=== PATIENT | female | born 1985 | race Caucasian/White ===

== ENCOUNTER 2019-04-04 04:57 | Emergency (ER) | payer OTHER ==
--- NOTE | 2019-04-04 05:07 | EDM.PDOC ---
ED HPI GENERAL MEDICAL PROBLEM - General Chief Complaint: Back Pain or Injury Stated Complaint: INJURED MIDDLE OF BACK AT WORK Time Seen by Provider: 04/04/19 05:07 - History of Present Illness INITIAL COMMENTS - FREE TEXT/NARRATIVE: 33-year-old female presents emergency room with thoracic back pain. Shortly before arrival the patient strained her back lifting up a trash bag. She has pain on the right side of her spine in the mid thoracic region she has a history of scoliosis and is used to feeling something click in her back. She felt this again when she was lifting a trash bag and figured the discomfort would go away, however it did not. Patient has not developed any numbness or tingling in any of her extremities. No loss of bowel or bladder control. Middle Back Pain Score (Numeric/FACES): 5 - Related Data Allergies Allergy/AdvReac Type Severity Reaction Status Date / Time acetaminophen [From Vicodin] Allergy Hives Verified 04/04/19 05:05 amoxicillin Allergy Anaphylactic Verified 04/04/19 05:05 Shock hydrocodone bitartrate Allergy Hives Verified 04/04/19 05:05 [From Vicodin] oxycodone HCl [From Percocet] Allergy Hives Verified 04/04/19 05:05 Home Meds: Home Meds . [No Known Home Meds] 10/29/18 [History] Social & Family History - Tobacco Use Smoking Status *Q: Current Every Day Smoker Years of Tobacco use: 20 Packs/Tins Daily: 1 - Recreational Drug Use Recreational Drug Use: No ED ROS GENERAL - Review of Systems Review Of Systems: See Below Constitutional: Reports: No Symptoms HEENT: Reports: No Symptoms Respiratory: Reports: No Symptoms Cardiovascular: Reports: No Symptoms GI/Abdominal: Reports: No Symptoms ED EXAM,LOWER BACK PAIN/INJURY - Physical Exam Exam: See Below Exam Limited By: No Limitations General Appearance: Alert, No Apparent Distress Head: Atraumatic, Normocephalic Neck: Normal Inspection Respiratory/Chest: No Respiratory Distress, Lungs Clear, Normal Breath Sounds Cardiovascular: Regular Rate, Rhythm, No Edema, No Murmur Back Exam: Other (Examination of her thoracic back shows no real bony tenderness however she's got marked spasm on the right side paraspinous muscles at about the level of the tip of the shoulder blade and slightly above this) Course - Vital Signs Last Recorded V/S: Last Vital Signs Temp 36.3 C 04/04/19 05:03 Pulse 86 04/04/19 05:03 Resp 16 04/04/19 05:03 BP 122/70 04/04/19 05:03 Pulse Ox 100 04/04/19 05:03 - Orders/Labs/Meds Orders: Active Orders 24 hr Category Date Time Status Thoracic Spine 2V [CR] Stat Exams 04/04/19 05:13 Taken Meds: Medications Discontinued Medications Generic Name Dose Route Start Last Admin Trade Name Lebron PRN Reason Stop Dose Admin Ketorolac Tromethamine 30 mg 04/04/19 06:23 Toradol IM 04/04/19 06:24 ONETIME ONE - Re-Assessments/Exams Free Text/Narrative Re-Assessment/Exam: 04/04/19 06:28 X-rays were obtained because of her history of scoliosis negative for acute changes. Patient will be given a shot of Toradol and then discharged. 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 Use ibuprofen up to 800 mg 3 times a day. Take with food Follow-up in the emergency room with any questions or problems. - My Orders Last 24 Hours: My Active Orders 04/04/19 05:13 Thoracic Spine 2V [CR] Stat - Assessment/Plan Last 24 Hours: My Active Orders 04/04/19 05:13 Thoracic Spine 2V [CR] Stat
[2019-04-04] MEDS ORDERED: Ketorolac 30 MG/ML SDV IM ONE (06:23)
--- NOTE | 2019-04-04 12:27 | CR ---
Thoracic spine: AP, lateral and swimmer's views of the thoracic spine were obtained. Mild scattered endplate osteophytes are seen as well as mild scattered disc space narrowing. Mild scoliosis is noted within the mid and upper thoracic spine. Pedicles are intact. No subluxation or fracture is appreciated. Incidental surgical clips are noted from prior cholecystectomy. Impression: 1. Mild scattered degenerative change with mild scoliosis. Diagnostic code #2
== END 2019-04-04 06:40 | disposition home or self-care (01) ==
LOC: JD.ED 04:57
DX: S29.012A Strain of muscle and tendon of back wall of thorax, initial encounter (principal); F17.210 Nicotine dependence, cigarettes, uncomplicated; Z88.6 Allergy status to analgesic agent; Z88.1 Allergy status to other antibiotic agents; Z88.8 Allergy status to other drugs, medicaments and biological substances; X50.0XXA Overexertion from strenuous movement or load, initial encounter
CPT/HCPCS: 72070; 96372; 99283; J1885

== ENCOUNTER 2020-09-18 02:54 | Emergency (ER) | payer MEDICAID, OTHER ==
[2020-09-18] MEDS ORDERED: FLU VACC QS2020-21(6MOS UP)/PF 60 MCG/0.5 ML SYRINGE IM ONE (03:30)
[2020-09-18] MEDS ORDERED: Cephalexin 500 MG Cap PO STA (03:43)
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
--- NOTE | 2020-09-18 08:51 | CR ---
PROCEDURE INFORMATION: Exam: XR Left Tibia and Fibula Exam date and time: 09/18/2020 3:42 AM Age: 34 years old Clinical indication: Left foot fractured in April, pain now. TECHNIQUE: Imaging protocol: XR Left tibia and fibula. Views: 2 views. COMPARISON: No relevant prior studies available. FINDINGS: Healing fracture is present involving the mid 1st metatarsal. Remaining osseous structures appear intact. No dislocation. Regional soft tissues are unremarkable. IMPRESSION: Healing left 1st metatarsal fracture. Thank you for allowing us to participate in the care of your patient. Dictated and Authenticated by: Richmond Riojas MD 09/18/2020 6:35 AM Central Time ([place] & [place]) [facility]
== END 2020-09-18 04:49 | disposition left against medical advice (07) ==
LOC: JD.ED 02:54
DX: S51.801A Unspecified open wound of right forearm, initial encounter (principal); M79.672 Pain in left foot; B00.9 Herpesviral infection, unspecified; F15.10 Other stimulant abuse, uncomplicated; F12.90 Cannabis use, unspecified, uncomplicated; F17.210 Nicotine dependence, cigarettes, uncomplicated; Z23 Encounter for immunization; Z88.6 Allergy status to analgesic agent; Z88.1 Allergy status to other antibiotic agents; Z88.5 Allergy status to narcotic agent; Z20.828 Contact with and (suspected) exposure to other viral communicable diseases; X58.XXXA Exposure to other specified factors, initial encounter
CPT/HCPCS: 73630; 87635; 90471; 90686; 99283; A9270; G0008; U0002

== ENCOUNTER 2022-07-22 17:56 | Emergency (ER) | payer SELFPAY | END 2022-07-22 20:40 | disposition home or self-care (01) | LOC: JD.ED 17:56 | DX: F19.10 Other psychoactive substance abuse, uncomplicated (principal); F17.210 Nicotine dependence, cigarettes, uncomplicated; Z88.6 Allergy status to analgesic agent; Z88.1 Allergy status to other antibiotic agents; Z88.5 Allergy status to narcotic agent; Z79.899 Other long term (current) drug therapy; Z90.49 Acquired absence of other specified parts of digestive tract; Z90.710 Acquired absence of both cervix and uterus | CPT/HCPCS: 36415; 80306; 80307; 99283 ==

== ENCOUNTER 2022-12-25 05:36 | Emergency (ER) | payer SELFPAY ==
[2022-12-25] MEDS ORDERED: methylPREDNISolone Sodium Succinate 125 MG/2 ML SDV IVPUSH ONE (05:47)
[2022-12-25] MEDS ORDERED: Famotidine 20 MG/2 ML SDV IVPUSH ONE (05:48)
[2022-12-25] MEDS ORDERED: diphenhydrAMINE 50 MG/ML SDV IVPUSH ONE (05:48)
[2022-12-25] MEDS ORDERED: Dextrose 5%-0.9% NaCl 1,000 ML IV SCH (06:00)
[2022-12-25] MEDS ORDERED: HYDROmorphone 1 MG/ML Syringe IVPUSH ONE (06:08)
[2022-12-25 06:37] LABS: CORONAVIRUS COVID-19 NAA NEGATIVE (NEGATIVE)
[2022-12-25 06:42] LABS: ESTIMATED GFR 74 mL/min (>60)
[2022-12-25] MEDS ORDERED: Lactated Ringers 1,000 ML IV ONE (07:35)
[2022-12-25] MEDS ORDERED: Potassium Chloride 20 MEQ Tab.ER PO ONE ×2 (07:53→15:51)
[2022-12-25] MEDS ORDERED: Ondansetron 4 MG/2 ML SDV IVPUSH ONE (09:41)
[2022-12-25] MEDS ORDERED: Dextrose 5%-Lactated Ringers 1,000 ML IV SCH (10:15)
[2022-12-25] MEDS ORDERED: Magnesium Oxide 400 MG Tab PO ONE (10:44)
[2022-12-25] MEDS ORDERED: Ketorolac 30 MG/ML SDV IM ONE (10:53)
[2022-12-25] MEDS ORDERED: LORazepam 2 MG/ML SDV IM ONE (15:41)
== END 2022-12-25 16:52 | disposition left against medical advice (07) ==
LOC: JD.ED 05:36
DX: F29 Unspecified psychosis not due to a substance or known physiological condition (principal); R45.851 Suicidal ideations; Z88.0 Allergy status to penicillin; Z88.1 Allergy status to other antibiotic agents; Z88.5 Allergy status to narcotic agent; Z88.8 Allergy status to other drugs, medicaments and biological substances; Z20.822 Contact with and (suspected) exposure to COVID-19
CPT/HCPCS: 0241U; 36415; 71045; 80053; 80143; 80179; 80306; 80307; 81001; 82009; 83605; 83735; 84443; 84703; 85025; 86140; 87086; 87088; 87186; 96361; 96372; 96374; 96375; 99285; A9270; J1170; J1200; J1885; J2060; J2405; J2930; J3490; J7042; J7120; J7121

== ENCOUNTER 2024-08-13 20:36 | Emergency (ER) | payer MEDICAID ==
[2024-08-13] MEDS ORDERED: LORazepam 1 MG Tab PO ONE (21:28)
[2024-08-13] MEDS: cloNIDine 0.1 MG Tab PO ONE (22:28)
[2024-08-13] MEDS: Gabapentin 300 MG Cap PO ONE (22:28)
[2024-08-14] MEDS: Topiramate 100 MG Tab PO ONE (02:06)
[2024-08-14] MEDS ORDERED: ClonazePAM 1 MG Tab PO SCH (21:00)
[2024-08-14] MEDS ORDERED: Topiramate 100 MG Tab PO SCH (21:00)
== END 2024-08-14 10:06 ==
LOC: JD.ED 20:36
DX: F10.20 Alcohol dependence, uncomplicated (principal); F15.10 Other stimulant abuse, uncomplicated; F17.210 Nicotine dependence, cigarettes, uncomplicated; Z90.49 Acquired absence of other specified parts of digestive tract; Z90.710 Acquired absence of both cervix and uterus; Z79.890 Hormone replacement therapy; Z79.899 Other long term (current) drug therapy; Z88.0 Allergy status to penicillin; Z88.1 Allergy status to other antibiotic agents; Z88.5 Allergy status to narcotic agent; Z88.6 Allergy status to analgesic agent
CPT/HCPCS: 99284; A9270

== ENCOUNTER 2025-10-01 14:01 | Emergency (ER) | payer MEDICAID | END 2025-10-01 16:27 | LOC: JD.ED 14:01 | DX: S16.1XXA Strain of muscle, fascia and tendon at neck level, initial encounter (principal); S80.12XA Contusion of left lower leg, initial encounter; S80.11XA Contusion of right lower leg, initial encounter; S40.022A Contusion of left upper arm, initial encounter; S40.021A Contusion of right upper arm, initial encounter; S09.90XA Unspecified injury of head, initial encounter; J45.909 Unspecified asthma, uncomplicated; Z79.899 Other long term (current) drug therapy; Z88.8 Allergy status to other drugs, medicaments and biological substances; Z88.1 Allergy status to other antibiotic agents; Z88.5 Allergy status to narcotic agent; Z90.49 Acquired absence of other specified parts of digestive tract; Z90.710 Acquired absence of both cervix and uterus; Y04.8XXA Assault by other bodily force, initial encounter | CPT/HCPCS: 70450; 70450-26; 72125; 72125-26; 73140-26-F6; 73140-F6; 99284 ==

== ENCOUNTER 2025-10-12 03:52 | Emergency (ER) | payer MEDICAID | END 2025-10-12 07:33 | disposition home or self-care (01) | LOC: JD.ED 03:52 | DX: T69.9XXA Effect of reduced temperature, unspecified, initial encounter (principal); F17.200 Nicotine dependence, unspecified, uncomplicated; E66.9 Obesity, unspecified; Z88.0 Allergy status to penicillin; Z88.1 Allergy status to other antibiotic agents; Z88.5 Allergy status to narcotic agent; Z88.6 Allergy status to analgesic agent; Z68.29 Body mass index [BMI] 29.0-29.9, adult; X31.XXXA Exposure to excessive natural cold, initial encounter | CPT/HCPCS: 99283 ==